=== PATIENT | female | born 1995 | race African-American/Black ===

== ENCOUNTER 2017-06-15 21:31 | Emergency (ER) | payer SELFPAY ==
--- NOTE | 2017-06-15 22:04 | EDM.PDOC ---
ED HPI GENERAL MEDICAL PROBLEM - General Chief Complaint: Abdominal Pain Stated Complaint: ABDOMINAL PAIN Time Seen by Provider: 06/15/17 22:04 - History of Present Illness INITIAL COMMENTS - FREE TEXT/NARRATIVE: 22-year-old female presents emergency room with abdominal pain. This pain is been going on for 2-3 hours. It is mostly right upper quadrant. Patient is somewhat concerned she is about 14 months after having gastric sleeve placed. This was placed in [place]. She has not had recommended follow- up for this. Patient developed fairly sudden right upper quadrant pain fairly sharp in nature. She has not had any nausea or vomiting associated with this. She has not had any wounds with black or tarry stools a kwadwo blood in her stools or vomiting or vomiting blood. She has not had any fevers or chills. Bilateral Lower Abdomen Pain Score (Numeric/FACES): 6 - Related Data Allergies Allergy/AdvReac Type Severity Reaction Status Date / Time No Known Allergies Allergy Verified 06/15/17 21:46 Home Meds: Home Meds . [No Known Home Meds] 06/15/17 [History] Past Medical History Cardiovascular History: Reports: High Cholesterol Endocrine/Metabolic History: Reports: Diabetes, Type II - Past Surgical History GI Surgical History: Reports: Other (See Below) Other GI Surgeries/Procedures: gastric sleeve Social & Family History - Tobacco Use Smoking Status *Q: Never Smoker Second Hand Smoke Exposure: No - Caffeine Use Caffeine Use: Reports: None - Recreational Drug Use Recreational Drug Use: No ED ROS GENERAL - Review of Systems Review Of Systems: See Below Constitutional: Reports: No Symptoms HEENT: Reports: No Symptoms Respiratory: Reports: No Symptoms Cardiovascular: Reports: No Symptoms Endocrine: Reports: No Symptoms GI/Abdominal: Reports: Abdominal Pain. Denies: Constipation, Diarrhea, Nausea, Vomiting : Reports: No Symptoms Skin: Reports: No Symptoms Neurological: Reports: No Symptoms ED EXAM, GI/ABD - Physical Exam Exam: See Below Exam Limited By: No Limitations General Appearance: Alert, No Apparent Distress Head: Atraumatic, Normocephalic Neck: Normal Inspection, Supple, Non-Tender, Full Range of Motion Respiratory/Chest: No Respiratory Distress, Lungs Clear, Normal Breath Sounds Cardiovascular: Regular Rate, Rhythm, No Edema, No Murmur GI/Abdominal Exam: Normal Bowel Sounds, Soft, Other (She has some vague right upper quadrant discomfort no significant discomfort over the tube gastrectomy side. No other significant abdominal discomfort noted no rebound or guarding noted no rigidity) Back Exam: Normal Inspection. No: CVA Tenderness (L), CVA Tenderness (R) Extremities: Normal Inspection, No Pedal Edema Neurological: Alert, Oriented, Normal Cognition Course - Vital Signs Last Recorded V/S: Last Vital Signs Temp 36.4 C 06/15/17 21:44 Pulse 77 06/15/17 21:44 Resp 18 06/15/17 21:44 BP 152/76 H 06/15/17 21:44 Pulse Ox 98 06/15/17 21:44 - Orders/Labs/Meds Orders: Active Orders 24 hr Category Date Time Status Sodium Chloride 0.9% [Normal Saline] 1,000 ml Med 06/15/17 22:45 Active IV ASDIRECTED Medication Orders Sodium Chloride (Normal Saline) 1,000 mls @ 150 mls/hr IV ASDIRECTED CHLOÉ Labs: Laboratory Tests 06/15/17 06/15/17 06/15/17 Range/Units 22:25 22:25 22:48 WBC 5.56 (3.98-10.04) K/mm3 RBC 4.88 (3.98-5.22) M/mm3 Hgb 10.7 L (11.2-15.7) gm/L Hct 33.5 L (34.1-44.9) % MCV 68.6 L (79.4-94.8) fl MCH 21.9 L (25.6-32.2) pg MCHC 31.9 L (32.2-35.5) g/dl RDW Std Deviation 37.4 (36.4-46.3) fL Plt Count 241 (182-369) K/mm3 MPV 9.7 (9.4-12.3) fl Neut % (Auto) 42.1 (34.0-71.1) % Lymph % (Auto) 48.7 (19.3-51.7) % [place] % (Auto) 7.7 (4.7-12.5) % Eos % (Auto) 1.1 (0.7-5.8) Baso % (Auto) 0.4 (0.1-1.2) % Neut # (Auto) 2.34 (1.56-6.13) K/mm3 Lymph # (Auto) 2.71 (1.18-3.74) K/mm3 [place] # (Auto) 0.43 H (0.24-0.36) K/mm3 Eos # (Auto) 0.06 (0.04-0.36) K/mm3 Baso # (Auto) 0.02 (0.01-0.08) K/mm3 Manual Slide Review Abnormal smear Sodium 140 (136-145) mEq/L Potassium 3.5 (3.5-5.1) mEq/L Chloride 102 (98-107) mEq/L Carbon Dioxide 26 (21-32) mEq/L Anion Gap 15.5 H (5-15) BUN 14 (7-18) mg/dL Creatinine 0.8 (0.55-1.02) mg/dL Est Cr Clr Drug Dosing 97.57 mL/min Estimated GFR (MDRD) > 60 (>60) mL/min BUN/Creatinine Ratio 17.5 (14-18) Glucose 81 (74-106) mg/dL Calcium 8.9 (8.5-10.1) mg/dL Total Bilirubin 0.2 (0.2-1.0) mg/dL AST 21 (15-37) U/L ALT 29 (14-59) U/L Alkaline Phosphatase 67 (46-116) U/L Total Protein 7.3 (6.4-8.2) g/dl Albumin 3.8 (3.4-5.0) g/dl Globulin 3.5 gm/dL Albumin/Globulin Ratio 1.1 (1-2) Lipase 123 (73-393) U/L Urine Color (Yellow) Urine Appearance (Clear) Urine pH (5.0-8.0) Ur Specific [place] (1.005-1.030) Urine Protein (Negative) Urine Glucose (UA) (Negative) Urine Ketones (Negative) Urine Occult Blood (Negative) Urine Nitrite (Negative) Urine Bilirubin (Negative) Urine Urobilinogen (0.2-1.0) Ur Leukocyte Esterase (Negative) Urine RBC (0-5) /hpf Urine WBC (0-5) /hpf Ur Epithelial Cells (0-5) /hpf Urine Bacteria (FEW) /hpf Urine Mucus (FEW) /hpf Urine HCG, Qual Negative (NEGATIVE) 06/15/17 Range/Units 22:49 WBC (3.98-10.04) K/mm3 RBC (3.98-5.22) M/mm3 Hgb (11.2-15.7) gm/L Hct (34.1-44.9) % MCV (79.4-94.8) fl MCH (25.6-32.2) pg MCHC (32.2-35.5) g/dl RDW Std Deviation (36.4-46.3) fL Plt Count (182-369) K/mm3 MPV (9.4-12.3) fl Neut % (Auto) (34.0-71.1) % Lymph % (Auto) (19.3-51.7) % [place] % (Auto) (4.7-12.5) % Eos % (Auto) (0.7-5.8) Baso % (Auto) (0.1-1.2) % Neut # (Auto) (1.56-6.13) K/mm3 Lymph # (Auto) (1.18-3.74) K/mm3 [place] # (Auto) (0.24-0.36) K/mm3 Eos # (Auto) (0.04-0.36) K/mm3 Baso # (Auto) (0.01-0.08) K/mm3 Manual Slide Review Sodium (136-145) mEq/L Potassium (3.5-5.1) mEq/L Chloride (98-107) mEq/L Carbon Dioxide (21-32) mEq/L Anion Gap (5-15) BUN (7-18) mg/dL Creatinine (0.55-1.02) mg/dL Est Cr Clr Drug Dosing mL/min Estimated GFR (MDRD) (>60) mL/min BUN/Creatinine Ratio (14-18) Glucose (74-106) mg/dL Calcium (8.5-10.1) mg/dL Total Bilirubin (0.2-1.0) mg/dL AST (15-37) U/L ALT (14-59) U/L Alkaline Phosphatase (46-116) U/L Total Protein (6.4-8.2) g/dl Albumin (3.4-5.0) g/dl Globulin gm/dL Albumin/Globulin Ratio (1-2) Lipase (73-393) U/L Urine Color Yellow (Yellow) Urine Appearance Clear (Clear) Urine pH 6.5 (5.0-8.0) Ur Specific [place] 1.015 (1.005-1.030) Urine Protein Negative (Negative) Urine Glucose (UA) Negative (Negative) Urine Ketones Negative (Negative) Urine Occult Blood Negative (Negative) Urine Nitrite Negative (Negative) Urine Bilirubin Negative (Negative) Urine Urobilinogen 0.2 (0.2-1.0) Ur Leukocyte Esterase Negative (Negative) Urine RBC Not seen (0-5) /hpf Urine WBC 0-5 (0-5) /hpf Ur Epithelial Cells 0-5 (0-5) /hpf Urine Bacteria Not seen (FEW) /hpf Urine Mucus Not seen (FEW) /hpf Urine HCG, Qual (NEGATIVE) Meds: Medications Generic Name Dose Route Start Last Admin Trade Name Freq PRN Reason Stop Dose Admin Sodium Chloride 1,000 mls @ 150 mls/hr 06/15/17 22:45 Normal Saline IV ASDIRECTED CHLOÉ Discontinued Medications Generic Name Dose Route Start Last Admin Trade Name Freq PRN Reason Stop Dose Admin Sodium Chloride 500 mls @ 999 mls/hr 06/15/17 22:40 06/15/17 22:54 Normal Saline IV 06/15/17 23:10 999 mls/hr .BOLUS ONE Administration - Re-Assessments/Exams Free Text/Narrative Re-Assessment/Exam: 06/15/17 23:58 Laboratory evaluation unrevealing other than she has an iron deficiency anemia. With further questioning the patient has a history of not having enough iron. At this point her pain is gone. Patient be scheduled for an outpatient gallbladder ultrasound. Discussed further imaging this evening such as CT which is what is available which probably isn't indicated because her pain is gone however with her history of a gastric sleeve this was thought through again again her pain is gone. The patient agrees on holding off with further imaging. We discussed following up in the clinic or returning to the emergency room with any questions or problems and she is in agreement to this. Departure - Departure Time of Disposition: 23:59 Disposition: Home, Self-Care 01 Clinical Impression: Right upper quadrant abdominal pain - Discharge Information Referrals: PCP,None [Primary Care Provider] - Forms: ED Department Discharge Additional Instructions: Return to emergency room if any questions problems worsening symptoms. Clear liquid diet for the next 12 hours then slowly advance as tolerated. You should be contacted about a time to get her gallbladder ultrasound done.. Follow-up at the Hospital clinic one or 2 days after your gallbladder ultrasound is done for follow-up discuss your iron deficiency anemia with them. [phone] - My Orders Last 24 Hours: My Active Orders 06/15/17 22:45 Sodium Chloride 0.9% [Normal Saline] 1,000 ml IV ASDIRECTED - Assessment/Plan Last 24 Hours: My Active Orders 06/15/17 22:45 Sodium Chloride 0.9% [Normal Saline] 1,000 ml IV ASDIRECTED
[2017-06-15] MEDS ORDERED: Sodium Chloride 0.9% 500 ML IV ONE (22:40)
[2017-06-15] MEDS ORDERED: Sodium Chloride 0.9% 1,000 ML IV SCH (22:45)
== END 2017-06-16 00:23 | disposition home or self-care (01) ==
LOC: JD.ED 21:31
DX: R10.11 Right upper quadrant pain (principal); E11.9 Type 2 diabetes mellitus without complications
CPT/HCPCS: 36415; 80053; 81001; 81025; 83690; 85025; 96360; 99284; J7040

== ENCOUNTER 2018-05-19 14:27 | Emergency (ER) | payer BC ==
--- NOTE | 2018-05-19 18:10 | EDM.PDOC ---
ED HPI GENERAL MEDICAL PROBLEM - General Chief Complaint: Abdominal Pain Stated Complaint: [facility] Time Seen by Provider: 05/19/18 14:57 Source of Information: Reports: Patient, RN Notes Reviewed - History of Present Illness INITIAL COMMENTS - FREE TEXT/NARRATIVE: 23 year old female with hx of gastric sleeve about 2 yrs ago. Has been having difficulty with constipation. [place] a bulge R abd today, took mag citrate about 1 hr ago. No pain or cramping at this time. Hx of extremely low iron, anemia. Worried about anemia, iron deficiency. Right Abdomen Pain Score (Numeric/FACES): 9 - Related Data Allergies Allergy/AdvReac Type Severity Reaction Status Date / Time No Known Allergies Allergy Verified 03/15/18 10:17 Home Meds: Home Meds Ferrous Sulfate [Iron] 325 mg PO DAILY 03/15/18 [History] Magnesium 250 mg PO DAILY 03/15/18 [History] Multivitamin [Multiple Vitamins] 1 tab PO DAILY 03/15/18 [History] Cholecalciferol (Vitamin D3) [Vitamin D3] 1,000 units PO DAILY 05/19/18 [History ] Cyanocobalamin (Vitamin B12) [Vitamin B12] 100 mcg PO DAILY 05/19/18 [History] Past Medical History HEENT History: Reports: Impaired Vision Other HEENT History: wears corrective lenses Cardiovascular History: Reports: Hypertension Respiratory History: Reports: Sleep Apnea, Other (See Below) Other Respiratory History: states sleep apnea "all went away" after gastric sleeve. Neurological History: Reports: Migraines Endocrine/Metabolic History: Reports: Diabetes, Type II Hematologic History: Reports: Anemia, Iron Deficiency - Past Surgical History GI Surgical History: Reports: Other (See Below) Other GI Surgeries/Procedures: gastric sleeve Social & Family History - Family History Family Medical History: Noncontributory - Tobacco Use Smoking Status *Q: Never Smoker Second Hand Smoke Exposure: No - Caffeine Use Caffeine Use: Reports: Coffee, Energy Drinks - Recreational Drug Use Recreational Drug Use: No - Living Situation & Occupation Living situation: Reports: Single Occupation: Employed ED ROS GENERAL - Review of Systems Review Of Systems: See Below Constitutional: Denies: Fever, Diaphoresis HEENT: Reports: No Symptoms Respiratory: Denies: Shortness of Breath Cardiovascular: Denies: Chest Pain GI/Abdominal: Reports: Abdominal Pain (mild, gone), Constipation. Denies: Nausea, Vomiting Musculoskeletal: Denies: Back Pain Skin: Reports: No Symptoms Neurological: Reports: No Symptoms ED EXAM, GI/ABD - Physical Exam Exam: See Below General Appearance: Alert, No Apparent Distress Eyes: Bilateral: Normal Appearance Throat/Mouth: Normal Inspection Head: No: Facial Swelling Neck: Supple, Full Range of Motion Respiratory/Chest: No Respiratory Distress, Lungs Clear, Normal Breath Sounds Cardiovascular: Regular Rate, Rhythm GI/Abdominal Exam: Soft, Non-Tender. No: Guarding Back Exam: No: CVA Tenderness (L), CVA Tenderness (R) Extremities: Normal Inspection Neurological: Alert, No Motor/Sensory Deficits Skin Exam: Warm, Dry Course - Vital Signs Last Recorded V/S: Last Vital Signs Temp 100.3 F 05/19/18 14:37 Pulse 83 05/19/18 14:37 Resp 20 05/19/18 14:37 BP 162/108 H 05/19/18 14:37 Pulse Ox 99 05/19/18 14:37 - Orders/Labs/Meds Labs: Laboratory Tests 05/19/18 05/19/18 Range/Units 15:17 15:17 WBC 7.04 (3.98-10.04) K/mm3 RBC 5.27 H (3.98-5.22) M/mm3 Hgb 12.8 (11.2-15.7) gm/L Hct 39.2 (34.1-44.9) % MCV 74.4 L (79.4-94.8) fl MCH 24.3 L (25.6-32.2) pg MCHC 32.7 (32.2-35.5) g/dl RDW Std Deviation 38.1 (36.4-46.3) fL Plt Count 238 (182-369) K/mm3 MPV 10.2 (9.4-12.3) fl Neut % (Auto) 67.4 (34.0-71.1) % Lymph % (Auto) 27.8 (19.3-51.7) % [place] % (Auto) 4.3 L (4.7-12.5) % Eos % (Auto) 0.3 L (0.7-5.8) Baso % (Auto) 0.1 (0.1-1.2) % Neut # (Auto) 4.74 (1.56-6.13) K/mm3 Lymph # (Auto) 1.96 (1.18-3.74) K/mm3 [place] # (Auto) 0.30 (0.24-0.36) K/mm3 Eos # (Auto) 0.02 L (0.04-0.36) K/mm3 Baso # (Auto) 0.01 (0.01-0.08) K/mm3 Manual Slide Review Abnormal smear Iron 80 (50-170) ug/dL Transferrin 321 (202-364) mg/dL - Re-Assessments/Exams Free Text/Narrative Re-Assessment/Exam: 05/21/18 12:54 vitals stable, hgb 12.8, iron 80 Departure - Departure Time of Disposition: 18:07 Disposition: Home, Self-Care 01 Condition: Fair Clinical Impression: Abdominal pain Qualifiers: Abdominal location: upper abdomen, unspecified Qualified Code(s): R10.10 - Upper abdominal pain, unspecified Constipation Qualifiers: Constipation type: unspecified constipation type Qualified Code(s): K59.00 - Constipation, unspecified - Discharge Information Instructions: Constipation, Adult Referrals: PCP,None [Primary Care Provider] - Forms: ED Department Discharge Additional Instructions: Continue to drink plenty of water, stool softener recommended once to twice daily, try take some do collects laxative pills, prunes or prune juice as needed , work with other medications in addition as needed. Follow-up clinic as needed , return to ED as needed if symptoms worsening in any way.
--- NOTE | 2018-05-20 15:50 | CR ---
Abdomen: Supine view of the abdomen was obtained. Comparison: Prior abdominal x-ray of 03/08/18. Single loop of slightly prominent small bowel gas is noted within the left abdomen believed to be incidental. Bowel gas pattern is otherwise unremarkable. No abnormal calcifications or soft tissue abnormality is seen. Bony structures are unremarkable. Impression: 1. Findings which are felt to be incidental as noted above. Diagnostic code #2
== END 2018-05-19 18:30 | disposition home or self-care (01) ==
LOC: JD.ED 14:27
DX: K59.00 Constipation, unspecified (principal); I10 Essential (primary) hypertension; E11.9 Type 2 diabetes mellitus without complications; Z79.899 Other long term (current) drug therapy
CPT/HCPCS: 36415; 74018; 74018-26; 83540; 84466; 85025; 99283; 99285